=== PATIENT | female | born 1945 | race Caucasian/White ===

== ENCOUNTER 2016-05-23 20:28 | Emergency (ER) | payer MEDICARE, OTHER ==
--- NOTE | 2016-05-23 20:34 | ER Document Report ---
ED Medical Screen (RME) - General Stated Complaint: ABDOMINAL PAIN, VOMITING Mode of Arrival: Medic Notes: EMS was called for abdominal pain and vomiting that started 2 days ago. Patient does complain of some difficulty breathing. Patient suspects that her COPD is acting up. Medics states that blood sugar was over 400. Patient denies any history of diabetes. hx: COPD, hypertension, asthma, colon cancer I have greeted and performed a rapid initial assessment of this patient. A comprehensive ED assessment and evaluation of the patient, analysis of test results and completion of the medical decision making process will be conducted by additional ED providers. TRAVEL OUTSIDE OF THE [place] IN LAST 30 DAYS: No - Related Data Allergies/Adverse Reactions: codeine [Codeine] Allergy (Severe, Verified 05/23/16 20:32) n AND V Past Medical History - Past Medical History Cardiac Medical History: Reports: Hx Hypertension - on meds Denies: Hx Atrial Fibrillation, Hx Congestive Heart Failure, Hx Coronary Artery Disease, Hx Heart Attack, Hx Hypercholesterolemia, Hx Peripheral Vascular Disease, Hx Pulmonary Embolism, Hx Heart Murmur Pulmonary Medical History: Reports: Hx Bronchitis, Hx COPD - inhaler Denies: Hx Asthma, Hx Pneumonia, Hx Respiratory Failure, Hx Sleep Apnea, Hx Tuberculosis Neurological Medical History: Denies: Hx Cerebrovascular Accident, Hx Seizures Malignancy Medical History: Denies: Hx Lung Cancer GI Medical History: Reports: Hx Gastroesophageal Reflux Disease, Hx Hiatal Hernia. Denies: Hx Crohn's Disease, Hx Irritable Bowel, Hx Liver Failure, Hx Ulcer Musculoskeltal Medical History: Reports Hx Arthritis, Denies Hx Muscular Dystrophy Traumatic Medical History: Denies: Hx Fractures Past Surgical History: Reports: Hx Abdominal Surgery - hernia repair, with mesh. Bladder tuck x6 years ago. Umb. hernia repair, Hx Breast Surgery - left breast lumpectomy, Hx Cholecystectomy, Hx Herniorrhaphy - x 2. Denies: Hx Appendectomy, Hx Bowel Surgery, Hx Section, Hx Colostomy, Hx Coronary Artery Bypass Graft, Hx Gastric Bypass Surgery, Hx Hysterectomy, Hx Mastectomy, Hx Pacemaker, Hx Tonsillectomy, Hx Tubal Ligation - Immunizations Hx Diphtheria, Pertussis, Tetanus Vaccination: Yes Physical Exam - Abdominal Tenderness: Tender - Left-sided abdominal tenderness
[2016-05-23] MEDS ORDERED: ONDANSETRON 4 MG TAB.RAPDIS PO ONE (20:45)
[2016-05-23 21:52] LABS: HEMATOCRIT 49.3 % (36.0-47.0); HGB HCT DIFFERENCE -1.3; MEAN CORPUSCULAR HEMOGLOBIN 29.5 pg (27.0-33.4); MEAN CORPUSCULAR HGB CONC 32.4 g/dL (32.0-36.0); MEAN CORPUSCULAR VOLUME 91 fl (80-97); RED BLOOD COUNT 5.42 10^6/uL (3.72-5.28); RED CELL DISTRIBUTION WIDTH 14.7 % (11.5-14.0); WHITE BLOOD COUNT 22.1 10^3/uL (4.0-10.5)
[2016-05-23] MEDS ORDERED: NORMAL SALINE 1000 ML 1,000 ML IV ONE (21:52)
[2016-05-23 22:09] LABS: ALANINE AMINOTRANSFERASE 64 U/L (9-52); ALBUMIN 3.6 g/dL (3.5-5.0); ALKALINE PHOSPHATASE 137 U/L (38-126); ANION GAP 14 (5-19); ASPARTATE AMINO TRANSFERASE 52 U/L (14-36); BLOOD UREA NITROGEN 32 mg/dL (7-20); CALCIUM 9.4 mg/dL (8.4-10.2); CARBON DIOXIDE 26 mmol/L (22-30); CHLORIDE 95 mmol/L (98-107); CREATINE KINASE 35 U/L (30-135); CREATININE RESULT 1.16 mg/dL (0.52-1.25); LIPASE 194.2 U/L (23-300); POTASSIUM 4.6 mmol/L (3.6-5.0); SODIUM 135.1 mmol/L (137-145); TOTAL PROTEIN 7.3 g/dL (6.3-8.2)
[2016-05-23 22:17] LABS: GLUCOSE 519 mg/dL (75-110)
[2016-05-23 22:21] LABS: CREATINE KINASE MB 0.39 ng/mL (<4.55)
--- NOTE | 2016-05-23 22:21 | ER Document Report ---
ED General - General Chief Complaint: Nausea/Vomiting Stated Complaint: ABDOMINAL PAIN, VOMITING Mode of Arrival: Medic Information source: Patient, Friend Notes: This is a 70-year-old female who presents to the ER with nausea and vomiting and lower abdominal pain since last night at about 2300. She had a normal bowel movement last night and has had no diarrhea. She denies fevers or chills. This afternoon, the pain and vomiting became unbearable and so she called EMS. Of note her Accu-Chek by EMS was over 400, and she has no known prior history of diabetes. Her last by mouth intake was 1830 last night and was corned beef hash. She has tried to tolerate sips of water today but has been unable to. TRAVEL OUTSIDE OF THE [place] IN LAST 30 DAYS: No - Related Data Allergies/Adverse Reactions: codeine [Codeine] Allergy (Severe, Verified 05/23/16 20:32) n AND V Past Medical History - General Information source: Patient, [facility] Records - Social History Smoking Status: Never Smoker Chew tobacco use (# tins/day): No Frequency of alcohol use: None Drug Abuse: None Family History: Reviewed & Not Pertinent - Past Medical History Cardiac Medical History: Reports: Hx Hypertension - on meds Denies: Hx Atrial Fibrillation, Hx Congestive Heart Failure, Hx Coronary Artery Disease, Hx Heart Attack, Hx Hypercholesterolemia, Hx Peripheral Vascular Disease, Hx Pulmonary Embolism, Hx Heart Murmur Pulmonary Medical History: Reports: Hx Bronchitis, Hx COPD - inhaler Denies: Hx Asthma, Hx Pneumonia, Hx Respiratory Failure, Hx Sleep Apnea, Hx Tuberculosis Neurological Medical History: Denies: Hx Cerebrovascular Accident, Hx Seizures Renal/ Medical History: Denies: Hx Peritoneal Dialysis Malignancy Medical History: Denies: Hx Lung Cancer GI Medical History: Reports: Hx Gastroesophageal Reflux Disease, Hx Hiatal Hernia. Denies: Hx Crohn's Disease, Hx Irritable Bowel, Hx Liver Failure, Hx Ulcer Musculoskeltal Medical History: Reports Hx Arthritis, Denies Hx Muscular Dystrophy Traumatic Medical History: Denies: Hx Fractures Past Surgical History: Reports: Hx Abdominal Surgery - hernia repair, with mesh. Bladder tuck x6 years ago. Umb. hernia repair, Hx Breast Surgery - left breast lumpectomy, Hx Cholecystectomy, Hx Herniorrhaphy - x 2. Denies: Hx Appendectomy, Hx Bowel Surgery, Hx Section, Hx Colostomy, Hx Coronary Artery Bypass Graft, Hx Gastric Bypass Surgery, Hx Hysterectomy, Hx Mastectomy, Hx Pacemaker, Hx Tonsillectomy, Hx Tubal Ligation - Immunizations Hx Diphtheria, Pertussis, Tetanus Vaccination: Yes Review of Systems - Review of Systems Notes: REVIEW OF SYSTEMS: CONSTITUTIONAL : Denies fever, chills, or sweats. Denies recent illness. EENT: Denies eye, ear, throat, or mouth pain or symptoms. Denies nasal or sinus congestion. CARDIOVASCULAR: Denies chest pain. RESPIRATORY: Denies cough, cold, or chest congestion. Denies shortness of breath, difficulty breathing, or wheezing. GASTROINTESTINAL: as per HPI GENITOURINARY: positive for dysuria for "a few days" MUSCULOSKELETAL: Denies neck or back pain or joint pain or swelling. SKIN: Denies rash or skin lesions. HEMATOLOGIC : Denies easy bruising or bleeding. LYMPHATIC: Denies swollen, enlarged glands. NEUROLOGICAL: Denies altered mental status or loss of consciousness. Denies headache. PSYCHIATRIC: Denies anxiety or stress or depression. ALL OTHER SYSTEMS REVIEWED AND NEGATIVE. Physical Exam - Vital signs Vitals: Temp Pulse Resp BP Pulse Ox 97.7 F 101 H 20 156/83 H 94 05/23/16 20:45 05/23/16 20:45 05/23/16 20:45 05/23/16 20:45 05/23/16 20:45 - Notes Notes: PHYSICAL EXAMINATION: GENERAL: ill appearing, elderly female, obese, conversant HEAD: Atraumatic, normocephalic. EYES: Pupils equal round and reactive to light, extraocular movements intact, sclera anicteric, conjunctiva are normal. ENT: nares patent, oropharynx clear without exudates. Mucous membranes tachy NECK: Normal range of motion, supple without lymphadenopathy LUNGS: Breath sounds clear to auscultation bilaterally and equal. No wheezes rales or rhonchi. HEART: Regular rate and rhythm without murmurs ABDOMEN: obese, soft, TTP LLQ with no guarding/rebound or peritoneal signs, bowel sounds present but hypoactive EXTREMITIES: Normal range of motion, no pitting or edema. No cyanosis. NEUROLOGICAL: No gross focal motor or sensory deficits noted. PSYCH: Normal mood, normal affect. SKIN: Warm, Dry, normal turgor, no rashes or lesions noted. Course - Re-evaluation Re-evalutation: 05/24/16 00:44 Patient reevaluated. She has had no further vomiting in the ER. We discussed her lab results and her new diagnosis of diabetes. Also she has a 2 cm obstructing left-sided renal stone. In light of the urinary tract infection and white blood cell count of 22,000, she will require transfer to a center that has urology coverage. She states that she prefers [facility]. I discussed her case with urologist at [facility] who stated that he does not have interventional radiology capability to place a nephrostomy tube that will likely be needed. I will call [facility] to arrange transport. 05/24/16 00:53 Discussed case with urology JOSE Araiza at [facility] who accepts transfer. 05/24/16 02:08 Patient has received IV fluids and IV Rocephin, and IV insulin. She has remained hemodynamically stable and afebrile in the emergency department. She understands the need for transfer to a facility that has urology coverage. All of her questions were answered. 05/24/16 02:42 05/24/16 03:21 Patient reevaluated just prior to EMS transport to [facility]. She states she has no pain. She is hemodynamically stable. Her Accu-Chek is still 4:15 and she will require additional insulin as an inpatient. - Vital Signs Vital signs: Temp Pulse Resp BP Pulse Ox 97.7 F 101 H 30 H 150/87 H 93 05/23/16 20:45 05/23/16 20:45 05/23/16 22:01 05/23/16 22:01 05/23/16 22:01 - Laboratory Result Diagrams: 05/23/16 21:41 05/24/16 01:55 Laboratory results interpreted by me: 05/23/16 05/23/16 05/23/16 20:48 21:41 21:41 WBC 22.1 H RBC 5.42 H Hgb 16.0 H Hct 49.3 H RDW 14.7 H Seg Neuts % (Manual) 84 H Lymphocytes % (Manual) 11 L Abs Neuts (Manual) 18.6 H Sodium 135.1 L Chloride 95 L BUN 32 H Est GFR ( Amer) 56 L Est GFR (Non-Af Amer) 46 L Glucose 519 H* POC Glucose 455 H* Hemoglobin A1c % AST 52 H ALT 64 H Alkaline Phosphatase 137 H Urine Protein Urine Glucose (UA) Urine Ketones Urine Blood Urine Nitrite Ur Leukocyte Esterase 05/23/16 05/23/16 05/24/16 21:41 23:10 01:55 WBC RBC Hgb Hct RDW Seg Neuts % (Manual) Lymphocytes % (Manual) Abs Neuts (Manual) Sodium 136.1 L Chloride BUN 29 H Est GFR ( Amer) Est GFR (Non-Af Amer) 50 L Glucose 485 H* POC Glucose Hemoglobin A1c % 10.2 H AST ALT Alkaline Phosphatase Urine Protein 30 H Urine Glucose (UA) >=500 H Urine Ketones 20 H Urine Blood LARGE H Urine Nitrite POSITIVE H Ur Leukocyte Esterase SMALL H - Diagnostic Test Radiology reviewed: Reports reviewed - CT of the abdomen and pelvis demonstrates a 2 cm stone in the left renal pelvis which is causing obstruction. There is perinephric edema and stranding. - EKG Interpretation by Me Additional EKG results interpreted by me: 05/24/16 02:07 EKG at 2217 demonstrates sinus rhythm with a rate of 97 and a right bundle branch block which is not significantly changed from her previous EKG. I see no signs of ischemia and no ST depression or elevation. Critical Care Note - Critical Care Note Total time excluding time spent on procedures (mins): 45 Comments: minutes of critical care time spent in direct contact evaluating and reevaluating the patient, treating symptoms, reviewing labs and studies and speaking with family and consultants excluding any procedures Discharge - Discharge Clinical Impression: New onset type 2 diabetes mellitus, Kidney stone on left side, Urinary tract obstruction by kidney stone Hyperglycemia due to type 2 diabetes mellitus Qualifiers: Diabetes mellitus senior executive assistant insulin use: without prison use Qualified Code(s ): E11.65 - Type 2 diabetes mellitus with hyperglycemia UTI (urinary tract infection) Qualifiers: Urinary tract infection type: site unspecified Hematuria presence: without hematuria Qualified Code(s): N39.0 - Urinary tract infection, site not specified Condition: Fair Disposition: [facility]
[2016-05-23 22:22] LABS: TROPONIN I < 0.012 ng/mL
[2016-05-23] MEDS ORDERED: INSULIN REG, HUMAN 100 UNIT/ML 3 ML VIAL (PYX) IV ONE (22:23)
[2016-05-23 22:38] LABS: BASOPHILS % (MANUAL) 0 % (0-2); EOSINOPHILS % (MANUAL) 0 % (0-6); LYMPHOCYTES % (MANUAL) 11 % (13-45); TOTAL CELLS COUNTED 100
[2016-05-23 22:39] LABS: RBC MORPHOLOGY COMMENT NORMO-CYTIC/CHROMIC; TOXIC GRANULATION SLIGHT; TOXIC VACUOLATION PRESENT
[2016-05-23 23:27] LABS: APPEARANCE,URINE SLIGHTLY-CLOUDY; BILIRUBIN,URINE NEGATIVE (NEGATIVE); GLUCOSE, URINE >=500 mg/dL (NEGATIVE); KETONES,URINE 20 mg/dL (NEGATIVE); LEUKOCYTE ESTERASE,URINE SMALL (NEGATIVE); NITRITE,URINE POSITIVE (NEGATIVE); PROTEIN,URINE 30 mg/dL (NEGATIVE); UROBILINOGEN,URINE NEGATIVE mg/dL (<2.0)
[2016-05-24] MEDS ORDERED: CEFTRIAXONE 1 GM/D5W RTU 50 ML IV ONE (00:11)
[2016-05-24 02:23] LABS: ANION GAP 14 (5-19); BLOOD UREA NITROGEN 29 mg/dL (7-20); CALCIUM 9.2 mg/dL (8.4-10.2); CARBON DIOXIDE 24 mmol/L (22-30); CHLORIDE 98 mmol/L (98-107); CREATININE RESULT 1.09 mg/dL (0.52-1.25); POTASSIUM 4.2 mmol/L (3.6-5.0); SODIUM 136.1 mmol/L (137-145)
[2016-05-24 02:49] LABS: GLUCOSE 485 mg/dL (75-110)
[2016-05-24 03:42] VITALS: BP 136/88
--- NOTE | 2016-05-24 08:32 | EKG REPORT ---
SEVERITY:- ABNORMAL ECG - SINUS RHYTHM RIGHT BUNDLE BRANCH BLOCK : Confirmed by: Aisha Knapp 24-May-2016 08:31:17
== END 2016-05-24 03:44 | disposition short-term general hospital (02) ==
LOC: ER 20:28
DX: N13.2 Hydronephrosis with renal and ureteral calculous obstruction (principal); E11.65 Type 2 diabetes mellitus with hyperglycemia; N39.0 Urinary tract infection, site not specified; R11.2 Nausea with vomiting, unspecified; R10.30 Lower abdominal pain, unspecified; I45.10 Unspecified right bundle-branch block; I10 Essential (primary) hypertension; J44.9 Chronic obstructive pulmonary disease, unspecified; E66.9 Obesity, unspecified; Z68.41 Body mass index [BMI] 40.0-44.9, adult; Z88.5 Allergy status to narcotic agent; Z87.19 Personal history of other diseases of the digestive system; Z90.49 Acquired absence of other specified parts of digestive tract; R10.814 Left lower quadrant abdominal tenderness
CPT/HCPCS: 93005; 99291; 96361; 96365; 36415; 82553; 82962; 82550; 83690; 85025; 80048; 80053; 81001; 84484; 83036; 74177; 93010; A9270 ×2; J7030; J0696; J1815; S0119

== ENCOUNTER → 2016-06-24 | Outpatient (CLI) | payer MEDICARE, OTHER | LOC: RAD 13:32 | PROVIDERS: ATTEND Urology | DX: N20.0 Calculus of kidney (principal) | CPT/HCPCS: 76770 ==